=== PATIENT | male | born 1970 | race African-American/Black ===

== ENCOUNTER 2016-06-18 13:03 | Emergency (ER) | payer SELFPAY ==
[~2016-06-18] VITALS: Ht 175.3 cm; Wt 100.0 kg
[2016-06-18] MEDS ORDERED: UNKNOWN BP MED (13:14)
[2016-06-18 14:00] VITALS: BP 152/91
[2016-06-18] MEDS ORDERED: IBUPROFEN 600MG TABLET PO ONE (14:00)
== END 2016-06-18 14:00 | disposition left against medical advice (07) ==
LOC: ER 13:44
DX: M94.0 Chondrocostal junction syndrome [Tietze] (principal); E86.0 Dehydration; R06.02 Shortness of breath; R05 Cough; R00.1 Bradycardia, unspecified; I10 Essential (primary) hypertension; F17.210 Nicotine dependence, cigarettes, uncomplicated; F12.90 Cannabis use, unspecified, uncomplicated; Z98.890 Other specified postprocedural states
CPT/HCPCS: 93005; 99281; 99283

== ENCOUNTER 2017-06-16 08:17 | Inpatient (IN) | payer SELFPAY ==
[~2017-06-16] VITALS: Ht 175.3 cm; Wt 102.5 kg
[~2017-06-16 08:17] MED LIST: UNKNOWN BP MED
[2017-06-16 11:03] LABS: BASOPHILS % 0.9 % (0.0-2.0); EOSINOPHILS % 1.1 % (0.0-5.0); HEMATOCRIT. 44.3 % (42.0-52.0); HEMOGLOBIN. 14.9 g/dL (14.0-18.0); LYMPHOCYTES % 35.6 % (20.0-50.0); MEAN CORPUSCULAR HEMOGLOBIN 32.2 pg (28.0-32.0); MEAN CORPUSCULAR VOLUME 95.8 fL (80.0-94.0); MEAN PLATELET VOLUME 7.5 fl (7.4-10.4); MONOCYTES % 9.5 % (2.0-8.0); NEUTROPHILS % 52.9 % (40.0-76.0); PLATELET 246 x1000/uL (130-400); RED BLOOD CELL COUNT 4.62 mill/uL (4.7-6.1); RED CELL DISTRIBUTION WIDTH 15.1 % (11.6-14.6)
[2017-06-16 11:11] LABS: INR 0.9; PARTIAL THROMBOPLASTIN TIME 29.6 sec (23.4-31.0); PROTHROMBIN TIME 9.9 sec (9.4-11.6)
[2017-06-16 11:24] LABS: CARBON DIOXIDE 31 mEq/L (21-32); CHLORIDE 105 mEq/L (98-107)
[2017-06-16] MEDS ORDERED: ASPIRIN 325MG TABLET PO ONE (12:15)
[2017-06-16] MEDS ORDERED: HYDRALAZINE 20MG/ML VIAL IV NR (12:45)
[2017-06-16] MEDS: NITROGLYCERIN OINT 1GM/INCH UDPKT TD SCH (13:11)
[2017-06-16] MEDS ORDERED: HYDRALAZINE 20MG/ML VIAL IV PRN (13:15)
[2017-06-16] MEDS ORDERED: CLONIDINE 0.1MG TABLET PO PRN (13:15)
[2017-06-16] MEDS ORDERED: HYDRALAZINE 20MG/ML VIAL IV ONE (13:45)
[2017-06-16 13:54] LABS: *AMPHETAMINES SCREEN URINE NEGATIVE (NEGATIVE); *BARBITURATES SCREEN URINE NEGATIVE (NEGATIVE); *BENZODIAZEPINES SCREEN URINE NEGATIVE (NEGATIVE); *COCAINE SCREEN URINE NEGATIVE (NEGATIVE); CANNABINOID URINE SCREEN PRESUMTIVE POSITIVE (NEGATIVE); METHADONE URINE SCREEN NEGATIVE (NEGATIVE); OPIATES URINE SCREEN NEGATIVE (NEGATIVE); PHENCYCLIDINE URINE SCREEN NEGATIVE (NEGATIVE)
[2017-06-16] MEDS: AMLODIPINE 5MG TABLET PO SCH ×2 (13:58→21:23)
[2017-06-16] MEDS ORDERED: LORAZEPAM 0.5MG TABLET PO PRN (18:15)
[2017-06-16] MEDS ORDERED: DIPHENHYDRAMINE 50MG/ML VIAL IV PRN (18:15)
[2017-06-16] MEDS ORDERED: NA PHOS,M-B/NA PHOS,DI-BA ENEMA 118ML PR PRN (18:15)
[2017-06-16] MEDS ORDERED: DOCUSATE SODIUM 100MG CAPSULE PO PRN (18:15)
[2017-06-16] MEDS ORDERED: ENOXAPARIN 120MG/0.8ML SYR SUBCUT NR (18:15)
[2017-06-16] MEDS ORDERED: ZOLPIDEM TARTRATE 5MG TABLET PO PRN (18:15)
[2017-06-16] MEDS ORDERED: IPRATROPIUM/ALBUTEROL 0.5-3(2.5)MG/3ML NEB INH PRN (18:15)
[2017-06-16] MEDS ORDERED: GUAIFENESIN 200MG/10ML SUGAR FREE UDC PO PRN (18:15)
[2017-06-16] MEDS ORDERED: ONDANSETRON HCL 4MG/2ML VIAL IV PRN (18:15)
[2017-06-16] MEDS ORDERED: MAGNESIUM/ALUMINUM HYDROXIDE/SIMETHICONE 30ML UDC PO PRN (18:15)
[2017-06-16] MEDS ORDERED: KETOROLAC 15MG/ML VIAL IV PRN (18:15)
[2017-06-16] MEDS ORDERED: TRAMADOL 50MG TABLET PO PRN (18:15)
[2017-06-16] MEDS ORDERED: LOSARTAN POTASSIUM 25 MG TABLET PO SCH (18:17)
[2017-06-16 18:50] VITALS: BP 167/92
[2017-06-16 20:00] VITALS: BP 150/69
[2017-06-16] MEDS: METOPROLOL TARTRATE 25MG TABLET PO SCH (21:23)
[2017-06-16] MEDS: ACETAMINOPHEN 325MG TABLET PO PRN (21:24)
[2017-06-16 22:00] VITALS: BP 147/65
[2017-06-17] VITALS (13 sets, daily range): BP systolic 121–159; BP diastolic 55–105
[2017-06-17] MEDS: NITROGLYCERIN OINT 1GM/INCH UDPKT TD SCH ×2 (04:48→08:27)
[2017-06-17 07:09] LABS: BASOPHILS % 0.3 % (0.0-2.0); EOSINOPHILS % 0.5 % (0.0-5.0); HEMATOCRIT. 39.8 % (42.0-52.0); HEMOGLOBIN. 13.6 g/dL (14.0-18.0); LYMPHOCYTES % 33.2 % (20.0-50.0); MEAN CORPUSCULAR HEMOGLOBIN 32.7 pg (28.0-32.0); MEAN CORPUSCULAR VOLUME 95.4 fL (80.0-94.0); MEAN PLATELET VOLUME 7.6 fl (7.4-10.4); MONOCYTES % 11.9 % (2.0-8.0); NEUTROPHILS % 54.1 % (40.0-76.0); PLATELET 231 x1000/uL (130-400); RED BLOOD CELL COUNT 4.17 mill/uL (4.7-6.1); RED CELL DISTRIBUTION WIDTH 14.8 % (11.6-14.6)
[2017-06-17] MEDS ORDERED: HEPARIN SODIUM 1,000 UNIT/1ML VIAL IV ONE (07:25)
[2017-06-17 07:55] LABS: CHLORIDE 108 mEq/L (98-107)
[2017-06-17 08:29] LABS: CARBON DIOXIDE 22 mEq/L (21-32); CREATINE KINASE 281 IU/L (39-308); CREATINE KINASE MB FRACTION 2.1 ng/mL (0.5-3.6); HDL CHOLESTEROL 53 mg/dL (40-59); LDL CHOLESTEROL 132 mg/dL (5-100)
[2017-06-17 08:50] LABS: TROPONIN I 0.86 ng/mL (0.00-0.04)
[2017-06-17] MEDS: ASPIRIN 325MG EC TABLET PO SCH (09:04)
[2017-06-17] MEDS: PANTOPRAZOLE SODIUM 40 MG/VIAL IV SCH (09:05)
[2017-06-17] MEDS: METOPROLOL TARTRATE 25MG TABLET PO SCH (09:07)
[2017-06-17] MEDS: AMLODIPINE 5MG TABLET PO SCH ×2 (09:07→21:52)
[2017-06-17] MEDS ORDERED: IOHEXOL-300 100 ML BOTTLE ONE ×2 (12:35→13:25)
[2017-06-17] MEDS ORDERED: LIDOCAINE HCL 1% 20ML VIAL (Pyxis) INJ ONE (12:36)
[2017-06-17] MEDS ORDERED: MIDAZOLAM HCL 2 MG/2 ML VIAL ONE (12:39)
[2017-06-17] MEDS ORDERED: FENTANYL CITRATE/PF 50MCG/ML 2ML VIAL ONE (12:39)
[2017-06-17] MEDS ORDERED: IOVERSOL 240MG/ML 100ML BOTTLE IV ONE (13:10)
[2017-06-17] MEDS ORDERED: CLOPIDOGREL 75MG TABLET ONE (13:37)
[2017-06-17] MEDS ORDERED: ACETAMINOPHEN 325MG TABLET PO PRN (13:45)
[2017-06-17] MEDS ORDERED: ATROPINE SULFATE 1MG/10ML SYR IV PRN (13:45)
[2017-06-17] MEDS: SODIUM CHLORIDE 0.45% 1,000 ML IV SCH (15:23)
[2017-06-17] MEDS: ACETAMINOPHEN 325MG TABLET PO PRN (18:01)
[2017-06-17] MEDS ORDERED: ATORVASTATIN CALCIUM 40MG TABLET PO SCH (21:00)
[2017-06-17] MEDS ORDERED: ATORVASTATIN CALCIUM 10MG TABLET PO SCH (21:00)
[2017-06-17] MEDS: METOPROLOL TARTRATE 50MG TABLET PO SCH (21:00)
[2017-06-17] MEDS: LOSARTAN POTASSIUM 50 MG TABLET PO SCH (23:00)
[2017-06-18] VITALS (7 sets, daily range): BP systolic 131–162; BP diastolic 63–97
[2017-06-18] MEDS: SODIUM CHLORIDE 0.45% 1,000 ML IV SCH (05:04)
[2017-06-18 07:12] LABS: BASOPHILS % 0.3 % (0.0-2.0); EOSINOPHILS % 1.2 % (0.0-5.0); HEMATOCRIT. 38.5 % (42.0-52.0); HEMOGLOBIN. 12.9 g/dL (14.0-18.0); LYMPHOCYTES % 33.9 % (20.0-50.0); MEAN CORPUSCULAR HEMOGLOBIN 31.9 pg (28.0-32.0); MEAN CORPUSCULAR VOLUME 95.4 fL (80.0-94.0); MEAN PLATELET VOLUME 7.9 fl (7.4-10.4); MONOCYTES % 11.3 % (2.0-8.0); NEUTROPHILS % 53.3 % (40.0-76.0); PLATELET 231 x1000/uL (130-400); RED BLOOD CELL COUNT 4.04 mill/uL (4.7-6.1); RED CELL DISTRIBUTION WIDTH 14.7 % (11.6-14.6)
[2017-06-18 07:32] LABS: CHLORIDE 108 mEq/L (98-107)
[2017-06-18 07:57] LABS: CARBON DIOXIDE 24 mEq/L (21-32)
[2017-06-18] MEDS: LOSARTAN POTASSIUM 50 MG TABLET PO SCH (08:26)
[2017-06-18] MEDS: METOPROLOL TARTRATE 50MG TABLET PO SCH (08:27)
[2017-06-18] MEDS: PANTOPRAZOLE SODIUM 40 MG/VIAL IV SCH (08:27)
[2017-06-18] MEDS: AMLODIPINE 5MG TABLET PO SCH (08:27)
[2017-06-18] MEDS: ASPIRIN 325MG EC TABLET PO SCH (08:27)
[2017-06-18] MEDS ORDERED: CLOPIDOGREL 75MG TABLET PO SCH (11:00)
== END 2017-06-18 12:05 | disposition home or self-care (01) | DRG 174 ==
LOC: ER 08:29 → 3WST 13:09 → EDBEDREQTM 13:11 → EDBEDREQ 13:11 → ENRESERV 17:08
PROVIDERS: ADMIT Internal Medicine; ATTEND Internal Medicine
PROC: 4A023N7 Measurement of Cardiac Sampling and Pressure, Left Heart, Percutaneous Approach (ICD-10-PCS; principal; 2017-06-17)
PROC: 027034Z Dilation of Coronary Artery, One Artery with Drug-eluting Intraluminal Device, Percutaneous Approach (ICD-10-PCS; 2017-06-17)
PROC: B2111ZZ Fluoroscopy of Multiple Coronary Arteries using Low Osmolar Contrast (ICD-10-PCS; 2017-06-17)
DX: I21.4 Non-ST elevation (NSTEMI) myocardial infarction (principal); I11.9 Hypertensive heart disease without heart failure; F12.10 Cannabis abuse, uncomplicated; I16.9 Hypertensive crisis, unspecified; F17.290 Nicotine dependence, other tobacco product, uncomplicated; Z88.0 Allergy status to penicillin; Z91.14 Patient's other noncompliance with medication regimen; Z79.899 Other long term (current) drug therapy
CPT/HCPCS: 36415; 71045; 80053; 80061; 80305; 82550; 82553; 83036; 83690; 83735; 83880; 84443; 84484; 85025; 85347; 85379; 85610; 85730; 92928; 93005; 93306; 93454; 93970; 96374; 96376; 99291; C1760; C1769; C1887; C1893; C9113; J0360; J1644; J2250; J3010; J3490; Q9967

== ENCOUNTER 2020-06-21 16:28 | Inpatient (IN) | payer MEDICAID ==
[~2020-06-21] VITALS: Ht 177.8 cm; Wt 90.7 kg
[2020-06-22] MEDS ORDERED: LEVETIRACETAM 1000 MG IV ONE (01:00)
[2020-06-22 02:05] LABS: BASOPHILS % 0.4 % (0.0-2.0); EOSINOPHILS % 0.4 % (0.0-5.0); HEMATOCRIT. 41.5 % (42.0-52.0); HEMOGLOBIN. 13.9 g/dL (14.0-18.0); LYMPHOCYTES % 34.6 % (20.0-50.0); MEAN CORPUSCULAR HEMOGLOBIN 31.1 pg (28.0-32.0); MEAN CORPUSCULAR VOLUME 92.9 fL (80.0-94.0); MEAN PLATELET VOLUME 7.5 fl (7.4-10.4); MONOCYTES % 5.6 % (2.0-8.0); PLATELET 276 x1000/uL (130-400); RED BLOOD CELL COUNT 4.46 mill/uL (4.7-6.1); RED CELL DISTRIBUTION WIDTH 15.4 % (11.6-14.6)
[2020-06-22 02:11] LABS: CHLORIDE 105 mEq/L (98-107)
[2020-06-22 02:15] LABS: ETHANOL BLOOD < 10 mg/dL
[2020-06-22] MEDS ORDERED: CLONIDINE 0.1MG TABLET PO PRN (03:30)
[2020-06-22] MEDS ORDERED: ACETAMINOPHEN 325MG TABLET PO PRN (03:30)
[2020-06-22] MEDS ORDERED: LORAZEPAM 2MG/ML CPJ IV PRN (03:30)
[2020-06-22] MEDS ORDERED: DOCUSATE SODIUM 100MG CAPSULE PO PRN (03:30)
[2020-06-22] MEDS ORDERED: HYDROCODONE/ACETAMINOPHEN 5/325MG TABLET PO PRN (03:30)
[2020-06-22] MEDS ORDERED: MAGNESIUM/ALUMINUM HYDROXIDE/SIMETHICONE 30ML UDC PO PRN (03:30)
[2020-06-22] MEDS ORDERED: GUAIFENESIN 200MG/10ML SUGAR FREE UDC PO PRN (03:30)
[2020-06-22] MEDS ORDERED: ONDANSETRON HCL 4MG/2ML INJ IV PRN (03:30)
[2020-06-22] MEDS: AMLODIPINE 10MG TABLET PO SCH (05:30)
[2020-06-22] MEDS: METOPROLOL TARTRATE 25MG TABLET PO SCH ×2 (08:01→21:41)
[2020-06-22 10:41] LABS: CREATINE KINASE 168 IU/L (39-308)
[2020-06-22 15:10] VITALS: BP 143/89
[2020-06-22 16:00] VITALS: BP 139/86
[2020-06-22] MEDS: LEVETIRACETAM 500MG TABLET PO SCH (21:41)
[2020-06-23 08:00] VITALS: BP 116/84
[2020-06-23 08:16] LABS: BASOPHILS % 0.6 % (0.0-2.0); HEMATOCRIT. 38.7 % (42.0-52.0); HEMOGLOBIN. 12.9 g/dL (14.0-18.0); LYMPHOCYTES % 53.2 % (20.0-50.0); MEAN CORPUSCULAR HEMOGLOBIN 31.1 pg (28.0-32.0); MEAN CORPUSCULAR VOLUME 92.9 fL (80.0-94.0); MEAN PLATELET VOLUME 7.4 fl (7.4-10.4); MONOCYTES % 7.9 % (2.0-8.0); NEUTROPHILS % 36.3 % (40.0-76.0); PLATELET 239 x1000/uL (130-400); RED BLOOD CELL COUNT 4.17 mill/uL (4.7-6.1); RED CELL DISTRIBUTION WIDTH 15.2 % (11.6-14.6)
[2020-06-23 08:22] LABS: CHLORIDE 105 mEq/L (98-107)
[2020-06-23] MEDS: AMLODIPINE 10MG TABLET PO SCH (08:41)
[2020-06-23] MEDS: LEVETIRACETAM 500MG TABLET PO SCH (08:41)
[2020-06-23] MEDS: METOPROLOL TARTRATE 25MG TABLET PO SCH (08:42)
[2020-06-23 12:00] VITALS: BP 142/84
[2020-06-23] MEDS ORDERED: ATORVASTATIN CALCIUM 20MG TABLET PO SCH (21:00)
== END 2020-06-23 14:13 | disposition home or self-care (01) | DRG 53 ==
LOC: ER 16:28 → 6EST 06-22 01:58 → EDBEDREQSVC 06-22 07:27 → ENRESERV 06-22 12:34
PROVIDERS: ADMIT Hospitalist; ATTEND Hospitalist
DX: G40.802 Other epilepsy, not intractable, without status epilepticus (principal); I10 Essential (primary) hypertension; F12.90 Cannabis use, unspecified, uncomplicated; E78.5 Hyperlipidemia, unspecified; Z86.73 Personal history of transient ischemic attack (TIA), and cerebral infarction without residual deficits; Z74.01 Bed confinement status
CPT/HCPCS: 36415; 80053; 80320; 82550; 85025; 93005; 99285; J1953; G0480

== ENCOUNTER 2021-08-26 21:36 | Emergency (ER) | payer MEDICAID ==
[~2021-08-26] VITALS: Ht 175.3 cm; Wt 76.0 kg
[2021-08-26] MEDS ORDERED: LEVETIRACETAM 500MG PREMIX 100 ML IV ONE ×2 (22:15)
[2021-08-26 22:54] LABS: BASOPHILS % 0.5 % (0.0-2.0); HEMATOCRIT. 38.5 % (42.0-52.0); LYMPHOCYTES % 59.5 % (20.0-50.0); MEAN CORPUSCULAR HEMOGLOBIN 31.6 pg (28.0-32.0); MEAN CORPUSCULAR VOLUME 93.7 fL (80.0-94.0); MEAN PLATELET VOLUME 7.2 fl (7.4-10.4); MONOCYTES % 8.3 % (2.0-8.0); NEUTROPHILS % 29.7 % (40.0-76.0); PLATELET 229 x1000/uL (130-400); RED BLOOD CELL COUNT 4.11 mill/uL (4.7-6.1); RED CELL DISTRIBUTION WIDTH 14.4 % (11.6-14.6)
[2021-08-26 23:01] LABS: CHLORIDE 107 mEq/L (98-107)
[2021-08-27 04:45] LABS: CLARITY URINE CLEAR (CLEAR); COLOR URINE YELLOW (YELLOW); KETONES URINE TRACE (NEGATIVE); LEUKOCYTE ESTERASE URINE NEGATIVE (NEGATIVE); NITRITE URINE NEGATIVE (NEGATIVE); OCCULT BLOOD URINE NEGATIVE (NEGATIVE); PH URINE 6.5 (4.5-8.0); PROTEIN URINE 1+ (NEGATIVE); SPECIFIC GRAVITY URINE 1.025 (1.005-1.030)
[2021-08-27 13:54] VITALS: BP 165/105
== END 2021-08-27 14:07 | disposition home or self-care (01) ==
LOC: ER 21:36
DX: R56.9 Unspecified convulsions (principal); F12.10 Cannabis abuse, uncomplicated; Z88.0 Allergy status to penicillin; Z86.73 Personal history of transient ischemic attack (TIA), and cerebral infarction without residual deficits
CPT/HCPCS: 36415; 71045; 80053; 81003; 83690; 85025; 93005; 96365; 99285; J1953

== ENCOUNTER 2021-10-26 14:30 | Emergency (ER) | payer MEDICARE, MEDICAID ==
[~2021-10-26] VITALS: Ht 175.3 cm; Wt 82.0 kg
[2021-10-26] MEDS ORDERED: LEVETIRACETAM 1000MG PREMIX 100 ML IV ONE (15:30)
[2021-10-26] MEDS ORDERED: SODIUM CHLORIDE 0.9% 1,000 ML IV ONE (15:30)
[2021-10-26 16:32] LABS: BASOPHILS % 0.3 % (0.0-2.0); EOSINOPHILS % 2.8 % (0.0-5.0); HEMATOCRIT. 37.6 % (42.0-52.0); HEMOGLOBIN. 12.7 g/dL (14.0-18.0); LYMPHOCYTES % 48.4 % (20.0-50.0); MEAN CORPUSCULAR HEMOGLOBIN 31.6 pg (28.0-32.0); MEAN CORPUSCULAR VOLUME 93.6 fL (80.0-94.0); MEAN PLATELET VOLUME 7.5 fl (7.4-10.4); MONOCYTES % 8.7 % (2.0-8.0); NEUTROPHILS % 39.8 % (40.0-76.0); PLATELET 209 x1000/uL (130-400); RED BLOOD CELL COUNT 4.02 mill/uL (4.7-6.1); RED CELL DISTRIBUTION WIDTH 15.3 % (11.6-14.6)
[2021-10-26 16:37] LABS: CHLORIDE 106 mEq/L (98-107)
[2021-10-26 16:39] LABS: PROTHROMBIN TIME 10.6 sec (9.6-11.0)
[2021-10-26 20:00] VITALS: BP 135/75
== END 2021-10-27 02:31 | disposition home or self-care (01) ==
LOC: ER 14:54
DX: G40.909 Epilepsy, unspecified, not intractable, without status epilepticus (principal); I10 Essential (primary) hypertension
CPT/HCPCS: 36415; 70450; 71045; 80053; 83880; 84484; 85025; 85610; 93005; 96365; 96366; 99285; J1953; J7030